=== PATIENT | female | born 1980 | race African-American/Black ===

== ENCOUNTER 2019-09-19 09:33 | Emergency (ER) | payer OTHER ==
[~2019-09-19] VITALS: Ht 170.2 cm; Wt 74.8 kg
[2019-09-19] MEDS ORDERED: IBUPROFEN 800 MG TAB PO ONE (11:15)
[2019-09-19 11:52] VITALS: BP 130/76
== END 2019-09-19 12:44 | disposition home or self-care (01) ==
LOC: ER 09:33
DX: M54.5 Low back pain (principal); M62.838 Other muscle spasm; R51 Headache; V43.62XA Car passenger injured in collision with other type car in traffic accident, initial encounter; Y93.89 Activity, other specified; Y92.410 Unspecified street and highway as the place of occurrence of the external cause; Y99.8 Other external cause status
CPT/HCPCS: 72100